=== PATIENT | male | born 1960 | race Caucasian/White ===

== ENCOUNTER 2017-01-29 11:45 | Emergency (ER) | payer SELFPAY ==
[~2017-01-29] VITALS: Ht 165.1 cm; Wt 65.9 kg
[~2017-01-29 11:45] MED LIST: PERC5TAB12 PO; ZALE10 PO
[2017-01-29 12:01] VITALS: BP 151/110; PULSE 84; RESP 24; TEMP 98; O2SAT 98
[2017-01-29 12:40] VITALS: BP 174/87; PULSE 71; RESP 20; O2SAT 98
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
[2017-01-29 13:31] LABS: AUTOMATED NEUTROPHIL # 5.7 TH/MM3 (1.8-7.7); BASOPHIL % 0.5 % (0.0-2.0); EOSINOPHIL # 0.1 TH/MM3 (0-0.4); EOSINOPHIL % 1.3 % (0.0-4.0); HEMATOCRIT 32.6 % (39.0-51.0); HEMO FLAGS DIFF FINAL; LYMPH % 19.8 % (9.0-44.0); LYMPHOCYTE # 1.6 TH/MM3 (1.0-4.8); MEAN CELL VOLUME 92.7 FL (80.0-100.0); MEAN CORPUSCULAR HEMOGLOBIN 32.4 PG (27.0-34.0); MEAN CORPUSCULAR HGB CONC 34.9 % (32.0-36.0); MONO % 8.2 % (0.0-8.0); NEUT % 70.2 % (16.0-70.0); PLATELET COUNT 388 TH/MM3 (150-450); RED BLOOD COUNT 3.52 MIL/MM3 (4.50-5.90); RED CELL DISTRIBUTION WIDTH 13.4 % (11.6-17.2); WHITE BLOOD COUNT 8.2 TH/MM3 (4.0-11.0)
[2017-01-29 13:42] LABS: ALT (GPT) 20 U/L (12-78); ANION GAP 9 MEQ/L (5-15); AST (GOT) 28 U/L (15-37); BICARBONATE 23.7 MEQ/L (21.0-32.0); BLOOD UREA NITROGEN 14 MG/DL (7-18); CHLORIDE 106 MEQ/L (98-107); GLOMERULAR FILTRATION RATE 80 ML/MIN (>89); POTASSIUM 3.9 MEQ/L (3.5-5.1); SODIUM (NA) 139 MEQ/L (136-145)
[2017-01-29 13:43] LABS: ALKALINE PHOSPHATASE 106 U/L (45-117); TOTAL BILIRUBIN ADULT 0.8 MG/DL (0.2-1.0)
--- NOTE | 2017-01-29 14:06 | RADRPT ---
EXAM DATE/TIME: 01/29/2017 13:40 [facility] COMPARISON: CT ABDOMEN & PELVIS W CONTRAST, September 09, 2014, 13:47. INDICATIONS : Cephalgia. RADIATION DOSE: 56.35 CTDIvol (mGy) MEDICAL HISTORY : None SURGICAL HISTORY : None. ENCOUNTER: Initial ACUITY: 1 day PAIN SCALE: 3/10 LOCATION: Bilateral cranial TECHNIQUE: Multiple contiguous axial images were obtained of the head. Using automated exposure control and adj ustment of the mA and/or kV according to patient size, radiation dose was kept as low as reasonably a chievable to obtain optimal diagnostic quality images. FINDINGS: CEREBRUM: The ventricles are normal for age. No evidence of midline shift, mass lesion, hemorrhage or acute in farction. No extra-axial fluid collections are seen. POSTERIOR FOSSA: The cerebellum and brainstem are intact. The 4th ventricle is midline. The cerebellopontine angle i s unremarkable. EXTRACRANIAL: The visualized portion of the orbits is intact. SKULL: The calvaria is intact. No evidence of skull fracture. CONCLUSION: 1. No acute intracranial abnormality identified. Lamont Rosa MD on January 29, 2017 at 14:03 Board Certified Radiologist. This report was verified electronically.
[2017-01-29] MEDS ORDERED: ACETAMINOPHEN 325 MG TAB PO ONE (14:15)
[2017-01-29 15:02] LABS: AMPHETAMINE, URINE NEG (NEG); BARBITURATES, URINE NEG (NEG); COCAINE, URINE POS (NEG)
[2017-01-29 15:21] VITALS: BP 131/69; PULSE 51; RESP 18; O2SAT 99
[2017-01-29 22:21] VITALS: BP 139/64; PULSE 62; RESP 17; O2SAT 97
[2017-01-30 02:00] VITALS: BP 127/67; PULSE 73; RESP 18; O2SAT 97
[2017-01-30 02:39] VITALS: BP 127/61; PULSE 73; RESP 18; O2SAT 97
[2017-01-30 06:00] VITALS: BP 112/61; PULSE 77; RESP 18; O2SAT 97
--- NOTE | 2017-01-30 13:31 | EKG ---
Date Performed: 01/29/2017 Time Performed: 13:00:12 PTAGE: 56 years EKG: Sinus rhythm NORMAL ECG NO PREVIOUS TRACING DOCTOR: Roberto Uriarte Interpretating Date/Time 01/30/2017 13:29:44
[2017-01-30 16:50] VITALS: BP 135/70; PULSE 55; RESP 16; O2SAT 98
[2017-01-30 17:50] VITALS: BP 136/83; PULSE 80; RESP 18; TEMP 98.6; O2SAT 98
[2017-01-30 17:51] VITALS: BP 103/54; PULSE 62; RESP 17; TEMP 98.8; O2SAT 98
== END 2017-01-30 18:39 | disposition home or self-care (01) ==
LOC: NEPD 11:45 → NEPJ 01-30 18:39
DX: F32.9 Major depressive disorder, single episode, unspecified (principal); R51 Headache; R10.13 Epigastric pain; Z72.0 Tobacco use; Z86.59 Personal history of other mental and behavioral disorders
CPT/HCPCS: 70450; 80053; 80307; 83690; 85025; 93005